=== PATIENT | female | born 1940 | race African-American/Black ===

== ENCOUNTER 2020-11-07 13:13 | Observation (INO) ==
[2020-11-07] MEDS ORDERED: SODIUM CHLORIDE 0.9% 500 ML IV STA (13:22)
[2020-11-07 13:43] LABS: Basophils % 0.5 % (0.0-0.8); Eosinophils # 0.2 10*3/uL (0.0-0.87); Eosinophils % 2.9 % (0.00-10.9); Hematocrit 33.1 VOL% (35.7-47.0); Hemoglobin 11.2 GM/DL (12.0-16.0); Immature Granulocytes % 0.2 %; Immature Granulocytes Absolute 0.01 #; Lymphocytes # 1.6 10*3/uL (1.4-4.0); Mean Corpuscular HGB Conc 33.8 GM/DL (32-36); Mean Corpuscular Volume 93.2 FL (87-102); Mean Platelet Volume 9.8 FL (9.6-12.0); Monocytes % 7.7 % (1.7-12.7); Neutrophils % 58.7 % (38.7-73.9); Platelet Count 231 T/CUMM (130-400); Red Blood Count 3.55 MC/CUMM (3.8-5.5); Red Cell Distribution Width 13.2 % (9.3-17.3); White Blood Count 5.5 T/CUMM (4-12)
[2020-11-07 14:04] LABS: Calcium 8.5 MG/DL (8.5-10.1); Osmolality,Calculated 291.8 MOS/KG (273-304); Potassium 2.7 MMOL/L (3.5-5.1)
[2020-11-07] MEDS ORDERED: ONDANSETRON 4 MG/2 ML VIAL IV PRN (15:01)
[2020-11-07] MEDS ORDERED: GLUCAGON 1 MG VIAL IM PRN (15:01)
[2020-11-07] MEDS ORDERED: DEXTROSE 50% 25 GM/50 ML VIAL IV PRN (15:01)
[2020-11-07] MEDS ORDERED: ZALEPLON 5 MG CAPSULE PO PRN (15:01)
[2020-11-07] MEDS ORDERED: ACETAMINOPHEN 325 MG TABLET PO PRN (15:01)
[2020-11-07 15:13] LABS: Bilirubin,Urine Negative (Negative); Blood, Urine Negative (Negative); Glucose,Urine (UA) Negative (Negative); Hyaline Casts,Urine 31 /LPF (0-3); Ketones,Urine Negative (Negative); Mucus,Urine Occasional /LPF (Occasional); Nitrite,Urine Negative (Negative); Protein,Urine Negative; RBC,Urine 3 /HPF (0-4); Urine Appearance CLEAR (Clear); Urine Color Yellow (Yellow); Urine Specific Gravity 1.012 (1.001-1.035); Urine Urobilinogen < 2.0 EU/DL (0.2-1.0); WBC,Urine <1 /HPF (0-6)
[2020-11-07] MEDS ORDERED: SODIUM CHLOR 0.45% KCL 20 MEQ 20 MEQ/1,000 ML BAG IV SCH (15:30)
[2020-11-07] MEDS ORDERED: ENOXAPARIN 30 MG/0.3 ML SYRINGE SUBCUT SCH (21:00)
[2020-11-08 05:49] LABS: Basophils % 0.6 % (0.0-0.8); Eosinophils # 0.2 10*3/uL (0.0-0.87); Eosinophils % 3.5 % (0.00-10.9); Hematocrit 29.7 VOL% (35.7-47.0); Hemoglobin 10.1 GM/DL (12.0-16.0); Immature Granulocytes % 0.2 %; Immature Granulocytes Absolute 0.01 #; Lymphocytes # 2.1 10*3/uL (1.4-4.0); Mean Corpuscular Volume 92.2 FL (87-102); Mean Platelet Volume 10.5 FL (9.6-12.0); Monocytes % 9.6 % (1.7-12.7); Neutrophils % 46.1 % (38.7-73.9); Platelet Count 221 T/CUMM (130-400); Red Blood Count 3.22 MC/CUMM (3.8-5.5); Red Cell Distribution Width 13.2 % (9.3-17.3); White Blood Count 5.1 T/CUMM (4-12)
[2020-11-08 06:24] LABS: Calcium 8.3 MG/DL (8.5-10.1)
[2020-11-08 06:33] LABS: Thyroid Stimulating Hormone 0.603 uIU/ml (0.358-3.74)
[2020-11-08] MEDS ORDERED: POTASSIUM CHLORIDE 20 MEQ TABLET PO ONE (08:01)
[2020-11-08] MEDS ORDERED: PANTOPRAZOLE 40 MG TABLET PO SCH (09:00)
[2020-11-08 15:37] LABS: Calcium 8.5 MG/DL (8.5-10.1); Osmolality,Calculated 284.1 MOS/KG (273-304); Potassium 3.5 MMOL/L (3.5-5.1)
[2020-11-08 18:00] VITALS: BP 123/72
== END 2020-11-08 18:33 | disposition home or self-care (01) ==
LOC: EDUNIT# → EDBD → N.EDINP 13:13 → N.ED 13:13 → SUATTDRO 15:01 → N.EDINP 16:45 → N.TELES 17:02
PROVIDERS: ADMIT Internal Medicine Nephrology; ATTEND Internal Medicine

== ENCOUNTER 2022-01-11 12:51 | Observation (INO) ==
[2022-01-11 13:23] LABS: Basophils # 0.1 10*3/uL (0.0-0.2); Basophils % 1.3 % (0.0-0.8); Eosinophils # 0.2 10*3/uL (0.0-0.87); Eosinophils % 3.7 % (0.00-10.9); Hematocrit 32.9 VOL% (35.7-47.0); Immature Granulocytes % 0.4 %; Immature Granulocytes Absolute 0.02 #; Lymphocytes # 1.6 10*3/uL (1.4-4.0); Lymphocytes % 33.8 % (21.3-54.2); Mean Corpuscular HGB Conc 33.4 GM/DL (32-36); Mean Corpuscular Volume 92.7 FL (87-102); Mean Platelet Volume 10.5 FL (9.6-12.0); Monocytes # 0.4 10*3/uL (0.11-0.8); Monocytes % 7.6 % (1.7-12.7); Neutrophils % 53.2 % (38.7-73.9); Platelet Count 267 T/CUMM (130-400); Red Blood Count 3.55 MC/CUMM (3.8-5.5); Red Cell Distribution Width 14.3 % (9.3-17.3); White Blood Count 4.6 T/CUMM (4-12)
[2022-01-11] MEDS ORDERED: SODIUM CHLORIDE 0.9% 1,000 ML IV STA (13:25)
[2022-01-11 13:33] LABS: PT Patient Result 10.8 SECS (10.5-12.0); Partial Thromboplastin Time 24.4 SECS (23.8-32.1)
[2022-01-11 13:41] LABS: Albumin 3.6 G/DL (3.4-5.0); Bilirubin,Total 0.5 MG/DL (0.20-1.00); Calcium 8.8 MG/DL (8.5-10.1); Osmolality,Calculated 288.8 MOS/KG (273-304); Potassium 3.7 MMOL/L (3.5-5.1)
[2022-01-11 13:58] LABS: Urine Appearance Clear (Clear); Urine Color Light Yellow (Yellow)
[2022-01-11 13:59] LABS: Bilirubin,Urine Negative (Negative); Blood, Urine Negative (Negative); Glucose,Urine (UA) Negative (Negative); Ketones,Urine Negative (Negative); Nitrite,Urine Negative (Negative); Protein,Urine Negative (Negative); Urine Urobilinogen 0.2 eU/dL (<2.0)
[2022-01-11 14:04] LABS: Squamous Epithelial Cell,Urine Occasional /HPF (0-10)
[2022-01-11 15:14] LABS: Barbiturates Screen,Urine Negative (Negative); Benzodiazepines Screen,Urine Negative (Negative); Cannabinoid Screen,Urine Negative (Negative); Opiate Screen,Urine Negative (Negative); Phencyclidine Screen,Urine Negative (Negative)
[2022-01-11] MEDS ORDERED: GLUCAGON 1 MG VIAL IM PRN (15:17)
[2022-01-11] MEDS ORDERED: ACETAMINOPHEN 325 MG TABLET PO PRN (15:18)
[2022-01-11] MEDS ORDERED: SIMETHICONE CHEW 125 MG TABLET PO PRN (15:18)
[2022-01-11] MEDS ORDERED: ONDANSETRON 4 MG/2 ML VIAL IV PRN (15:18)
[2022-01-11] MEDS ORDERED: DEXTROSE 10% 250 ML BAG IV PRN (15:24)
[2022-01-11] MEDS ORDERED: cefTRIAXone 1,000 MG in SODIUM CHLORIDE 0.9% 100 ML IV ONE (16:54)
[2022-01-11] MEDS ORDERED: ENOXAPARIN 40 MG/0.4 ML SYRINGE SUBCUT SCH (17:00)
[2022-01-11] MEDS: INSULIN LISPRO 100 UNIT/ML SUBCUT SCH (18:32)
[2022-01-12] MEDS: INSULIN LISPRO 100 UNIT/ML SUBCUT SCH ×4 (02:19→21:36)
[2022-01-12 06:13] LABS: Basophils # 0.1 10*3/uL (0.0-0.2); Basophils % 1.1 % (0.0-0.8); Eosinophils # 0.3 10*3/uL (0.0-0.87); Eosinophils % 4.7 % (0.00-10.9); Hematocrit 32.8 VOL% (35.7-47.0); Hemoglobin 10.8 GM/DL (12.0-16.0); Immature Granulocytes % 0.2 %; Immature Granulocytes Absolute 0.01 #; Lymphocytes # 2.2 10*3/uL (1.4-4.0); Mean Corpuscular HGB Conc 32.9 GM/DL (32-36); Mean Corpuscular Volume 93.4 FL (87-102); Mean Platelet Volume 11.2 FL (9.6-12.0); Monocytes # 0.5 10*3/uL (0.11-0.8); Monocytes % 8.4 % (1.7-12.7); Neutrophils % 45.6 % (38.7-73.9); Platelet Count 282 T/CUMM (130-400); Red Blood Count 3.51 MC/CUMM (3.8-5.5); Red Cell Distribution Width 14.7 % (9.3-17.3); White Blood Count 5.4 T/CUMM (4-12)
[2022-01-12 06:43] LABS: Calcium 8.8 MG/DL (8.5-10.1); Osmolality,Calculated 286.8 MOS/KG (273-304); Potassium 3.9 MMOL/L (3.5-5.1); Risk Ratio 2.87; Thyroid Stimulating Hormone 0.563 uIU/ml (0.358-3.74); VLDL Cholesterol 25.8 MG/DL
[2022-01-12] MEDS: PANTOPRAZOLE 40 MG TABLET PO SCH (09:44)
[2022-01-12] MEDS ORDERED: ATORVASTATIN 40 MG TABLET PO SCH (21:00)
[2022-01-12] MEDS: MEMANTINE 5 MG TABLET PO SCH (21:40)
[2022-01-13 06:47] LABS: Basophils # 0.1 10*3/uL (0.0-0.2); Basophils % 1.1 % (0.0-0.8); Eosinophils # 0.2 10*3/uL (0.0-0.87); Eosinophils % 4.6 % (0.00-10.9); Hematocrit 33.1 VOL% (35.7-47.0); Immature Granulocytes % 0.2 %; Immature Granulocytes Absolute 0.01 #; Lymphocytes # 1.9 10*3/uL (1.4-4.0); Lymphocytes % 36.4 % (21.3-54.2); Mean Corpuscular HGB Conc 33.2 GM/DL (32-36); Mean Corpuscular Volume 92.2 FL (87-102); Monocytes # 0.6 10*3/uL (0.11-0.8); Neutrophils % 46.7 % (38.7-73.9); Platelet Count 263 T/CUMM (130-400); Red Blood Count 3.59 MC/CUMM (3.8-5.5); Red Cell Distribution Width 14.3 % (9.3-17.3); White Blood Count 5.3 T/CUMM (4-12)
[2022-01-13 07:18] LABS: Calcium 9.1 MG/DL (8.5-10.1); Osmolality,Calculated 282.3 MOS/KG (273-304); Potassium 3.5 MMOL/L (3.5-5.1)
[2022-01-13] MEDS ORDERED: ASPIRIN CHEW 81 MG TABLET PO SCH (09:00)
[2022-01-13] MEDS: MEMANTINE 5 MG TABLET PO SCH (09:59)
[2022-01-13] MEDS: PANTOPRAZOLE 40 MG TABLET PO SCH (09:59)
[2022-01-13 11:48] VITALS: BP 157/81
== END 2022-01-13 13:50 | disposition home health service (06) ==
LOC: N.ED 12:51 → N.EDINP 12:51 → SUATTDRO 15:17 → N.5E 16:28
PROVIDERS: ADMIT Internal Medicine; ATTEND Internal Medicine